=== PATIENT | male | born 1960 | race Caucasian/White ===

== ENCOUNTER 2023-09-04 06:09 | Day surgery (SDC) | payer BC ==
[2023-08-26 14:52] VITALS: BMI 34.0
[2023-09-04] MEDS ORDERED: PROPOFOL 20 ML ONE ×3 (07:15→09:22)
[2023-09-04] MEDS ORDERED: MIDAZOLAM HCL 2 MG/2 ML SINGLE DOSE VIAL ONE ×3 (07:15→09:05)
[2023-09-04] MEDS ORDERED: EPINEPHrine 1:1,000 1,000 MCG/ML ML ONE (07:15)
[2023-09-04] MEDS ORDERED: SUCCINYLCHOLINE CHLORIDE 200 MG/10 ML SYRINGE ONE (07:15)
[2023-09-04] MEDS ORDERED: BUPIVACAINE HCL/EPINEPHRINE/PF 30 ML VIAL IJ ONE (07:15)
[2023-09-04] MEDS ORDERED: DEXAMETHASONE SOD PHOSPHATE 10 MG/1 ML VIAL ONE (07:23)
[2023-09-04] MEDS ORDERED: ROPIVACAINE HCL 0.5% 30ML VIAL ONE ×2 (07:23→07:25)
[2023-09-04] MEDS ORDERED: ceFAZolin SODIUM 1 GM VIAL ONE (07:47)
[2023-09-04] MEDS ORDERED: ONDANSETRON 4 MG/2 ML VIAL IVPUSH PRN (09:54)
[2023-09-04] MEDS ORDERED: oxyCODONE HCL 5 MG TABLET PO PRN ×2 (09:54)
[2023-09-04] MEDS ORDERED: ACETAMINOPHEN 1000 MG/100 ML BAG IVPB ONE (10:00)
[2023-09-04 10:30] VITALS: TEMP 97.5
[2023-09-04 11:17] VITALS: BP 114/70; PULSE 89; RESP 19
== END 2023-09-04 11:18 | disposition home or self-care (01) ==
LOC: FASU 06:09
PROVIDERS: ATTEND Orthopaedic Surgery
PROC: 0RNK4ZZ Release Left Shoulder Joint, Percutaneous Endoscopic Approach (ICD-10-PCS; principal; 2023-09-04 08:13)
DX: M75.122 Complete rotator cuff tear or rupture of left shoulder, not specified as traumatic (principal)
CPT/HCPCS: 94760; C1713; J1100

== ENCOUNTER 2024-12-09 05:57 | Day surgery (SDC) | payer BC ==
[2024-12-07 15:00] VITALS: BMI 32.1
[2024-12-09] MEDS ORDERED: SUCCINYLCHOLINE CHLORIDE 200 MG/10 ML SYRINGE ONE (07:14)
[2024-12-09] MEDS ORDERED: DEXAMETHASONE SOD PHOSPHATE 4 MG/1 ML VIAL ONE (07:15)
[2024-12-09] MEDS ORDERED: ONDANSETRON 4 MG/2 ML VIAL ONE (07:15)
[2024-12-09] MEDS ORDERED: METOCLOPRAMIDE HCL INJECTION 10 MG/2 ML VIAL ONE (07:15)
[2024-12-09] MEDS ORDERED: PROPOFOL 60 ML ONE (07:20)
[2024-12-09] MEDS ORDERED: MIDAZOLAM HCL 2 MG/2 ML SINGLE DOSE VIAL ONE ×3 (07:24→08:22)
[2024-12-09] MEDS ORDERED: BUPIVACAINE LIPOSOME/PF (EXPAREL) 266 MG/20 ML VIAL ONE (07:26)
[2024-12-09] MEDS ORDERED: BUPIVACAINE HCL/PF 0.5% (5MG/ML) 10 ML VIAL ONE (07:26)
[2024-12-09] MEDS ORDERED: PROPOFOL 20 ML ONE ×3 (08:25→10:25)
[2024-12-09] MEDS ORDERED: MAGNESIUM SULF 50% (8.12 MEQ/2 ML-1 GM VIAL) ONE (08:31)
[2024-12-09] MEDS ORDERED: TRANEXAMIC ACID 1000 MG/10 ML VIAL ONE (08:35)
[2024-12-09] MEDS ORDERED: GLYCOPYRROLATE 0.2 MG/1 ML VIAL ONE (08:38)
[2024-12-09] MEDS ORDERED: ACETAMINOPHEN INJECTION 100 ML ONE (08:39)
[2024-12-09] MEDS ORDERED: HYDROmorphone HCL/PF 1 MG/ML VIAL ONE (08:47)
[2024-12-09] MEDS ORDERED: ONDANSETRON 4 MG/2 ML VIAL IVPUSH PRN (10:58)
[2024-12-09] MEDS ORDERED: MAGNESIUM HYDROX 2400MG/30ML ORAL SUSPENSION 30 ML CUP PO PRN (10:58)
[2024-12-09] MEDS ORDERED: MAG HYDROX/AL HYDROX/SIMETH 30 ML UNIT-DOSE CUP PO PRN (10:58)
[2024-12-09] MEDS ORDERED: FENTANYL CITRATE/PF 50 MCG/ML VIAL ONE ×3 (11:24→12:17)
[2024-12-09] MEDS: CEFAZOLIN 2 GM in DEXTROSE 5%-WATER - 100 ML IVPB ONE (13:13)
[2024-12-09] MEDS: ACETAMINOPHEN 1000 MG/100 ML BAG IVPB SCH ×2 (13:13→17:11)
[2024-12-09] MEDS: LACTATED RINGERS SOLUTION 1,000 ML IV SCH (13:13)
[2024-12-09] MEDS: ACETAMINOPHEN 500 MG TABLET (FP) PO SCH (14:36)
[2024-12-09] MEDS: CEFAZOLIN SODIUM 2 GM in DEXTROSE 5%-WATER 100 ML IVPB SCH (17:12)
[2024-12-09 19:32] VITALS: RESP 18
[2024-12-09] MEDS: LABETALOL HCL 100 MG TABLET (FP) PO SCH (21:48)
[2024-12-09] MEDS: FAMOTIDINE 20 MG TABLET PO SCH (21:48)
[2024-12-09] MEDS: SENNOSIDES/DOCUSATE COMBO (SENNA PLUS) TABLET (UD) PO SCH (21:48)
[2024-12-09] MEDS: ASPIRIN 81 MG CHEWABLE TABLETS PO SCH (21:48)
[2024-12-09] MEDS: DEXAMETHASONE 4 MG TABLET (FP) PO SCH (21:48)
[2024-12-09] MEDS: TRANEXAMIC ACID 1000 MG/10 ML VIAL IVPUSH SCH (21:50)
[2024-12-10] MEDS: MULTIVITAMINS (DAILY MVI) TABLET (FP) PO SCH (09:19)
[2024-12-10] MEDS: TAMSULOSIN HCL 0.4 MG CAP PO SCH (09:19)
[2024-12-10] MEDS: HYDROCHLOROTHIAZIDE 25 MG TABLET (FP) PO SCH (09:19)
[2024-12-10] MEDS: TRIAMTERENE 50 MG CAPSULE PO SCH (09:30)
[2024-12-10 14:56] VITALS: BP 128/67; PULSE 72; TEMP 98.6
== END 2024-12-10 15:30 | disposition home or self-care (01) ==
LOC: FASUSAT 05:57 → FM/S 12:34 → FASUSAT 12-10 15:30
PROVIDERS: ATTEND Orthopaedic Surgery
PROC: 0SRC0J9 Replacement of Right Knee Joint with Synthetic Substitute, Cemented, Open Approach (ICD-10-PCS; principal; 2024-12-09 08:50)
DX: M17.11 Unilateral primary osteoarthritis, right knee (principal)
CPT/HCPCS: 73560-TC-RT-FY; 94760; 97010-GP; 97116-GP; 97162-GP; C1776; J0666